=== PATIENT | female | born 1950 | race Caucasian/White ===

== ENCOUNTER 2017-06-14 10:11 | Inpatient (IN) | payer MEDICARE, BC ==
[~2017-06-14] VITALS: Ht 162.6 cm; Wt 87.3 kg
[~2017-06-14 10:11] MED LIST: PANT20TA2 PO; VENL150C PO
[2017-06-14] MEDS ORDERED: LACTATED RINGERS 1,000 ML IV SCH (10:54)
[2017-06-14] MEDS ORDERED: GABA300C10 PO (10:58)
[2017-06-14] MEDS ORDERED: ACETAMINOPHEN 500 MG TABLET PO ONE (11:00)
[2017-06-14] MEDS ORDERED: LIDOCAINE 1%, 2ML SQ PRN (11:00)
[2017-06-14] MEDS ORDERED: SCOPOLAMINE 1MG PATCH TD ONE ×2 (11:00→11:03)
[2017-06-14] MEDS ORDERED: LIDOCAINE 1%, 2ML ONE (11:03)
[2017-06-14] MEDS ORDERED: GABAPENTIN 300 MG CAPSULE ONE (11:03)
[2017-06-14] MEDS ORDERED: ACETAMINOPHEN 500 MG TABLET ONE (11:03)
[2017-06-14] MEDS ORDERED: ROPIvacaine/PF 0.2%, 20 ML ONE (11:06)
[2017-06-14] MEDS ORDERED: TRANEXAMIC ACID 100 MG/ML, 10ML ONE (11:06)
[2017-06-14] MEDS ORDERED: KETOROLAC 60 MG/2 ML ONE (11:06)
[2017-06-14] MEDS ORDERED: EPINEPHRINE 1 MG/ML, 1ML ONE (11:07)
[2017-06-14] MEDS ORDERED: SODIUM CHLORIDE 0.9% 100 ML ONE (11:07)
[2017-06-14] MEDS ORDERED: FENTANYL PF 100 MCG/2ML ONE (12:55)
[2017-06-14] MEDS ORDERED: MIDAZOLAM 1 MG/ML, 2ML ONE (12:55)
[2017-06-14] MEDS ORDERED: PROPOFOL 10 MG/ML, 20ML ONE (14:03)
[2017-06-14] MEDS ORDERED: FENTANYL PF 100 MCG/2ML IV PRN (15:00)
[2017-06-14] MEDS ORDERED: DIAZEPAM 5 MG/ML, 2ML IVPush PRN (15:00)
[2017-06-14] MEDS ORDERED: PROMETHAZINE 25 MG/ML, 1ML IV PRN (15:00)
[2017-06-14] MEDS ORDERED: MEPERIDINE/PF 25MG/0.5ML IVPush PRN (15:00)
[2017-06-14] MEDS ORDERED: OXYcodone 5 MG/5 ML ORAL.SOL UDC PO PRN (15:00)
[2017-06-14] MEDS ORDERED: HYDROmorphone 1 MG/ML, 1ML IV PRN (15:00)
[2017-06-14] MEDS ORDERED: ROPIvacaine/PF 0.2%, 100ML 550 ML (check volume) INJ ONE (15:00)
[2017-06-14] MEDS: OXYcodone IR 5MG TABLET PO SCH ×3 (16:00→23:48)
[2017-06-14] MEDS ORDERED: BISACODYL 10 MG SUPP PR PRN (16:00)
[2017-06-14] MEDS ORDERED: ONDANSETRON 2MG/ML, 2ML IV PRN (16:00)
[2017-06-14] MEDS ORDERED: PROMETHAZINE 12.5 MG SUPP PR PRN (16:00)
[2017-06-14] MEDS ORDERED: DIAZEPAM 5 MG TABLET PO PRN (16:00)
[2017-06-14] MEDS ORDERED: ALUMINUM/MAG/SIMETHICONE 30 ML UDC PO PRN (16:00)
[2017-06-14] MEDS ORDERED: HYDROcodone/APAP 10/325 MG TABLET PO PRN (16:00)
[2017-06-14] MEDS ORDERED: ONDANSETRON 4 MG TABLET PO PRN (16:00)
[2017-06-14] MEDS ORDERED: DIPHENHYDRAMINE 50 MG CAPSULE PO PRN (16:00)
[2017-06-14] MEDS ORDERED: ZOLPIDEM 5MG TABLET PO PRN (16:00)
[2017-06-14] MEDS ORDERED: SENNA/DOCUSATE TABLET PO PRN (16:00)
[2017-06-14] MEDS ORDERED: PROMETHAZINE 25 MG/ML, 1ML IM PRN (16:00)
[2017-06-14] MEDS ORDERED: MAGNESIUM HYDROXIDE 8%, 30ML UDC PO PRN (16:00)
[2017-06-14] MEDS ORDERED: OXYcodone IR 5MG TABLET PO PRN (16:00)
[2017-06-14] MEDS ORDERED: OXYcodone 5 MG/5 ML ORAL.SOL UDC ONE (16:05)
[2017-06-14] MEDS ORDERED: TRANEXAMIC ACID 1,000 MG in SODIUM CHLORIDE 0.9% 100 ML IVPB ONE (17:00)
[2017-06-14 17:10] VITALS: BP 133/83
[2017-06-14] MEDS ORDERED: HYDROmorphone 1 MG/ML, 1ML ONE (17:35)
[2017-06-14] MEDS: HYDROmorphone 1 MG/ML, 1ML IV PRN ×2 (17:39→18:14)
[2017-06-14] MEDS: D5%-0.45% NACL 1,000 ML IV SCH (17:48)
[2017-06-14] MEDS: ACETAMINOPHEN 500 MG TABLET PO SCH (18:14)
[2017-06-14] MEDS: ASPIRIN 81 MG TABLET EC PO SCH (18:24)
[2017-06-14] MEDS: TAMSULOSIN 0.4 MG CAP.ER.24H PO SCH (18:24)
[2017-06-14] MEDS: DOCUSATE 100 MG CAPSULE PO SCH (19:41)
[2017-06-14 20:06] VITALS: BP 122/83
[2017-06-14] MEDS: CEFAZOLIN PMX 2GM/50ML 50 ML IVPB SCH (21:29)
[2017-06-14 23:56] VITALS: BP 129/79
[2017-06-15] MEDS: D5%-0.45% NACL 1,000 ML IV SCH ×3 (01:54→10:27)
[2017-06-15] MEDS: ACETAMINOPHEN 500 MG TABLET PO SCH ×2 (02:05→10:27)
[2017-06-15 03:56] VITALS: BP 116/72
[2017-06-15] MEDS: OXYcodone IR 5MG TABLET PO SCH ×3 (04:18→11:53)
[2017-06-15 04:51] LABS: HEMATOCRIT 38.5 % (34.6-47.8); HEMOGLOBIN 12.9 g/dL (11.7-16.4)
[2017-06-15] MEDS ORDERED: DEXAMETHASONE 4 MG/ML, 1ML IVPush SCH (06:00)
[2017-06-15] MEDS: ASPIRIN 81 MG TABLET EC PO SCH (06:11)
[2017-06-15] MEDS: CEFAZOLIN PMX 2GM/50ML 50 ML IVPB SCH (06:11)
[2017-06-15] MEDS ORDERED: PANTOPRAZOLE 20MG TABLET PO SCH (07:30)
[2017-06-15 08:01] VITALS: BP 100/63
[2017-06-15] MEDS: TAMSULOSIN 0.4 MG CAP.ER.24H PO SCH (08:08)
[2017-06-15] MEDS: DOCUSATE 100 MG CAPSULE PO SCH (08:08)
[2017-06-15] MEDS ORDERED: MULTIVITAMINS/MINERALS TABLET PO SCH (09:00)
[2017-06-15] MEDS ORDERED: VENLAFAXINE 75 MG CAP ER PO SCH (09:00)
[2017-06-15 12:00] VITALS: BP 123/66
[2017-06-15] MEDS ORDERED: OXYC5CAP2 PO (12:24)
[2017-06-15] MEDS ORDERED: KETOROLAC 30 MG/1 ML IV SCH (16:00)
== END 2017-06-15 12:45 | disposition home or self-care (01) | DRG 470 ==
LOC: ORIP 10:11 → EDBD 13:45 → 4NOR 17:15 → DCLOUNGE 06-15 12:22
PROVIDERS: ADMIT Orthopaedic Surgery; ATTEND Orthopaedic Surgery
PROC: 0SRD0J9 Replacement of Left Knee Joint with Synthetic Substitute, Cemented, Open Approach (ICD-10-PCS; principal; 2017-06-14 13:15)
DX: M17.12 Unilateral primary osteoarthritis, left knee (principal); F32.9 Major depressive disorder, single episode, unspecified; K21.9 Gastro-esophageal reflux disease without esophagitis; M21.00 Valgus deformity, not elsewhere classified, unspecified site; Z87.891 Personal history of nicotine dependence
CPT/HCPCS: 36415; 85014; 85018; C1713; J0171; J0690; J1100; J1170; J1885; J2250; J2704; J2795; J3010; J3490; C1776; J7120